=== PATIENT | male | born 1965 | race Caucasian/White ===

== ENCOUNTER 2023-04-03 12:13 | Outpatient (REF) | payer SELFPAY ==
--- NOTE | ~2023-04-03 | XR_ITS ---
EXAMINATION: XR ANKLE, RIGHT CLINICAL INFORMATION: Pain COMPARISON: None available. TECHNIQUE: AP, lateral, and mortise views of the right ankle. FINDINGS: There is a subtle lucency along the lateral distal tibia with slight superior periosteal thickening. The rest of the visualized distal tibia and fibula appears unremarkable. There are tiny bone fragments along the tip of medial malleolus likely old avulsion injury. The ankle mortise and subtalar joints are normal. The soft tissues are normal. XR/XR ankle RT min 3V IMPRESSION: 1. Subtle nonexpansile lucency along the distal lateral tibia. Differential diagnoses includes nonossifying fibroma, osteoblastoma, simple unicameral bone cyst or enchondroma. Correlation with outpatient CT or MRI is recommended. 2. The rest of the right ankle is unremarkable.
== END 2023-04-03 12:14 | disposition home or self-care (01) ==
LOC: HO.HOSX 12:13
PROVIDERS: Visit Provider Orthopaedic Surgery
DX: M25.571 Pain in right ankle and joints of right foot (principal); M25.872 Other specified joint disorders, left ankle and foot
CPT/HCPCS: 73610

== ENCOUNTER 2023-04-10 11:11 | Outpatient (REF) | payer OTHER, SELFPAY ==
--- NOTE | ~2023-04-10 | MR_ITS ---
EXAMINATION: MRI ANKLE WITHOUT CONTRAST, LEFT CLINICAL INDICATION: Other specified joint disorders, left ankle and foot - M25.872 COMPARISON: None available. TECHNIQUE: Multiplanar MR imaging was obtained through the left ankle without contrast. FINDINGS: ACHILLES TENDON: Normal. OTHER TENDONS: There is mild peroneus longus and peroneus brevis tendinosis without appreciable tears or tenosynovitis. Mild posterior tibial tenosynovitis without appreciable tears or tendinosis. The other medial flexor tendons are normal. Extensor tendons are unremarkable. LIGAMENTS: Anterior talofibular ligament is absent, most consistent with a chronic tear with resorption. The calcaneofibular ligament is intact. Posterior talofibular and distal tibiofibular ligaments are intact. The ill-defined appearance of the deltoid ligament is likely result of a prior sprain. No tears. Normal spring ligament. BONE AND ARTICULAR CARTILAGE: Moderate-sized marginal osteophytes are present at the anteromedial margin of the talocrural joint with moderate associated cartilage loss at the medial clear space with regions of full-thickness cartilage loss, cortical irregularity, and subchondral edema. There is a 1 x 0.7 cm high-grade chondral defect at the posterolateral margin of the talar dome with underlying cortical irregularity and subchondral edema. Additional chondral thinning is present along the posterior aspect of the tibial plafond. Small marginal osteophytes are present at the remainder of the talocrural joint. Subtalar and Chopart joints are unremarkable. No fracture or malalignment. JOINT FLUID AND SOFT TISSUES: No joint effusion. Mild edema signal in the periarticular soft tissues at the ankle, more pronounced laterally. PLANTAR FASCIA: Normal. SINUS TARSI AND TARSAL TUNNEL: Normal. MR/MR ankle LT wo con IMPRESSION: 1. 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 Anteromedial osteophytes predispose to anteromedial impingement. 2. 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 3. Mild peroneus longus and peroneus brevis tendinosis. 4. Mild posterior tibial tenosynovitis.
== END 2023-04-10 11:12 | disposition home or self-care (01) ==
LOC: HO.MRI 11:11
PROVIDERS: PCP Internal Medicine; Visit Provider Orthopaedic Surgery
DX: M25.872 Other specified joint disorders, left ankle and foot (principal)
CPT/HCPCS: 73721